=== PATIENT | male | born 1980 ===

== ENCOUNTER 2023-06-12 12:27 | Inpatient (IN) | payer MEDICAID ==
[~2023-06-12] VITALS: Ht 177.8 cm; Wt 74.2 kg
[2023-06-12 13:17] LABS: COVID AG,FIA SOURCE NASAL SWAB
[2023-06-12 13:25] LABS: BASOPHILS % (AUTO) 0.4 % (0.0-2.0); EOSINOPHILS % (AUTO) 0.8 % (1.0-6.0); HEMATOCRIT 46.2 % (41-53); HEMOGLOBIN 15.8 g/dL (13.5-17.5); LYMPHOCYTES # (AUTO) 0.8 K/uL (1.0-4.8); LYMPHOCYTES % (AUTO) 7.8 % (22.0-44.0); MEAN CORPUSCULAR HEMOGLOBIN 31.9 pg (26.0-34.0); MEAN CORPUSCULAR HGB CONC 34.3 G/dL (31.0-37.0); MEAN CORPUSCULAR VOLUME 93 fL (80-100); MONOCYTES # (AUTO) 0.4 K/uL (0.1-1.0); MONOCYTES % (AUTO) 3.5 % (2.0-9.0); NEUTROPHILS # (AUTO) 9.3 K/uL (1.8-7.7); PLATELET COUNT (AUTO) 258 K/uL (150-450); RED BLOOD CELL COUNT(AUTO) 4.97 MIL/uL (4.50-5.90); RED CELL DISTRIBUTION WIDTH 13.8 % (11.5-14.5); WHITE BLOOD COUNT (AUTO) 10.6 K/uL (4.5-11.0)
[2023-06-12 13:29] LABS: NEUTROPHILS % (AUTO) 87.5 % (40.0-70.0)
[2023-06-12] MEDS: ONDANSETRON HCL 4 MG/2 ML VIAL IVP ONE ×2 (13:30→17:20)
[2023-06-12] MEDS: MORPHINE SULFATE 2 MG/ML SYRINGE IVP ONE (13:30)
[2023-06-12 13:31] LABS: ANION GAP 12 mmol/L (8-16); CARBON DIOXIDE 27 mmol/L (22-29); CHLORIDE 104 mmol/L (98-107); GLOMERULAR FILTR. RATE CALC > 60 mL/min (>60); GLUCOSE,RANDOM 139 mg/dL (70-110); POTASSIUM 4.1 mmol/L (3.5-5.1); SODIUM SERUM 143 mmol/L (136-145); UREA NITROGEN, BLOOD 19 mg/dL (7-18)
[2023-06-12] MEDS: SODIUM CHLORIDE 0.9% 1,000 ML IV ONE ×2 (13:31→14:43)
[2023-06-12 13:36] LABS: ALANINE AMINOTRANSFERASE 24 U/L (12-78); ALBUMIN 4.1 g/dL (3.4-5.0); ALKALINE PHOSPHATASE 79 U/L (46-116); ASPARTATE AMINOTRANSFERASE 20 U/L (15-37); BILIRUBIN,TOTAL 0.7 mg/dL (0.1-1.0); LIPASE 42 U/L (16-77)
[2023-06-12 13:46] LABS: SARS-COV2 (COVID) ANTIGEN,FIA Negative (Negative); TROPONIN I-HIGH SENSITIVITY 4 ng/L (<76)
[2023-06-12 13:47] LABS: INFLUENZA TYPE A NEGATIVE FOR TYPE A (NEGATIVE); INFLUENZA TYPE B NEGATIVE FOR TYPE B (NEGATIVE)
[2023-06-12] MEDS: POTASSIUM PHOS,M-BASIC-D-BASIC 20 MEQ in DEXTROSE 5%-WATER 100 ML IV ONE (14:43)
[2023-06-12] MEDS: MORPHINE SULFATE 4 MG/ML SYRINGE IVP ONE (14:53)
[2023-06-12] MEDS ORDERED: POTASSIUM CHLORIDE 20 MEQ ER TABLET PO PRN (15:15)
[2023-06-12] MEDS ORDERED: ACETAMINOPHEN 325 MG TABLET PO PRN (15:15)
[2023-06-12] MEDS ORDERED: MORPHINE SULFATE 2 MG/ML SYRINGE IVP PRN (15:15)
[2023-06-12] MEDS ORDERED: ZOLPIDEM TARTRATE 5 MG TABLET PO PRN (15:15)
[2023-06-12] MEDS ORDERED: BISACODYL 10 MG RECTAL RECTAL SUPPOSITORY PR PRN (15:15)
[2023-06-12] MEDS ORDERED: HYDROCODONE/ACETAMINOPHEN 5-325 MG TABLET PO PRN (15:15)
[2023-06-12] MEDS ORDERED: MAGNESIUM HYDROXIDE SUSPENSION 30 ML UDCUP PO PRN (15:15)
[2023-06-12] MEDS ORDERED: ONDANSETRON HCL 4 MG/2 ML VIAL IVP PRN (15:15)
[2023-06-12] MEDS ORDERED: HydrALAZINE HCL 20 MG/ML VIAL IVP PRN (15:15)
[2023-06-12] MEDS ORDERED: POTASSIUM CHL 10 MEQ/WATER 50 ML IV PRN (15:15)
[2023-06-12] MEDS: LABETALOL HCL 5 MG/ML 20 ML VIAL IVP ONE (15:18)
[2023-06-12] MEDS: AmLODIPine BESYLATE 5 MG TABLET PO ONE ×2 (15:22)
[2023-06-12] MEDS: SODIUM,POTASSIUM PHOSPHATES POWDER PACKET PO ONE (15:23)
[2023-06-12] MEDS: HEPARIN SODIUM,PORCINE 5,000 UNITS/ML VIAL SQ SCH (15:27)
[2023-06-12] MEDS: HydrALAZINE HCL 20 MG/ML VIAL IVP ONE (17:20)
[2023-06-12] MEDS: DOCUSATE SODIUM 100 MG CAPSULE PO SCH (20:04)
[2023-06-12 21:40] VITALS: BP 116/70; PULSE 107; RESP 18; TEMP 98.5
[2023-06-13 00:15] VITALS: BP 113/59; PULSE 102; RESP 18; TEMP 98
[2023-06-13 05:37] VITALS: BP 118/62; PULSE 100; RESP 18; TEMP 98.2
[2023-06-13 05:41] VITALS: BP 115/64; PULSE 78; RESP 18; TEMP 98.1
[2023-06-13 07:53] LABS: ALBUMIN 3.2 g/dL (3.4-5.0); CREATININE 0.88 mg/dL (0.60-1.30); GLOMERULAR FILTR. RATE CALC > 60 mL/min (>60); POTASSIUM 3.6 mmol/L (3.5-5.1); UREA NITROGEN, BLOOD 13 mg/dL (7-18)
[2023-06-13 08:44] LABS: ALANINE AMINOTRANSFERASE 16 U/L (12-78); ALKALINE PHOSPHATASE 67 U/L (46-116); ANION GAP 15 mmol/L (8-16); ASPARTATE AMINOTRANSFERASE 17 U/L (15-37); BILIRUBIN,TOTAL 0.6 mg/dL (0.1-1.0); CARBON DIOXIDE 22 mmol/L (22-29); CHLORIDE 106 mmol/L (98-107); GLUCOSE,RANDOM 83 mg/dL (70-110); SODIUM SERUM 143 mmol/L (136-145); TOTAL PROTEIN, SERUM 6.8 g/dL (6.4-8.2)
[2023-06-13] MEDS: PANTOPRAZOLE SODIUM 40 MG DR TABLET PO SCH (09:59)
[2023-06-13] MEDS: PIPERACILLIN/TAZO 3.375 GM/D5W 50 ML IV SCH (11:33)
[2023-06-13] MEDS ORDERED: ONDA-104 PO (12:49)
[2023-06-13] MEDS ORDERED: METR500 PO (12:49)
[2023-06-13] MEDS ORDERED: LOPE-232 PO (12:49)
[2023-06-13] MEDS ORDERED: AMLO-257 PO (12:54)
[2023-06-13 13:00] VITALS: BP 133/81; PULSE 72; RESP 18; TEMP 98.2
[2023-06-13] MEDS: POTASSIUM CHLORIDE 20 MEQ ER TABLET PO ONE (13:27)
== END 2023-06-13 13:45 | disposition home or self-care (01) | DRG 249 ==
LOC: EMS 12:28 → AHU 17:30 → 5S 20:21
PROVIDERS: ADMIT Internal Medicine; ATTEND Internal Medicine
DX: A08.4 Viral intestinal infection, unspecified (principal); E83.39 Other disorders of phosphorus metabolism; E86.0 Dehydration; I10 Essential (primary) hypertension; Z20.822 Contact with and (suspected) exposure to COVID-19; Z79.899 Other long term (current) drug therapy
CPT/HCPCS: 74176; 80053; 83690; 83735; 84100; 84484; 85025; 87804; 93005; 99285; G0378; J0360; J1644; J2270; J2405; J2543; J3490; J7060

== ENCOUNTER → 2024-02-04 | Emergency (ER) | payer MEDICAID ==
[~2024-02-04] VITALS: Ht 180.3 cm; Wt 75.0 kg
[~2024-02-04] MED LIST: AMLO-257 PO; AMOX500C2 PO; LOPE-232 PO; METR500 PO; ONDA-104 PO
[2024-02-04 10:36] VITALS: TEMP 99
[2024-02-04 11:30] LABS: COVID AG,FIA SOURCE NASAL SWAB
[2024-02-04 12:21] LABS: SARS-COV2 (COVID) ANTIGEN,FIA Negative (Negative)
[2024-02-04 12:22] LABS: INFLUENZA TYPE A NEGATIVE FOR TYPE A (NEGATIVE); INFLUENZA TYPE B NEGATIVE FOR TYPE B (NEGATIVE)
[2024-02-04 13:22] VITALS: BP 130/77; PULSE 80; RESP 18; O2SAT 99
== END | disposition still patient (30) ==
LOC: EMS 10:26
DX: H66.90 Otitis media, unspecified, unspecified ear (principal); F17.210 Nicotine dependence, cigarettes, uncomplicated; F12.90 Cannabis use, unspecified, uncomplicated; Z20.822 Contact with and (suspected) exposure to COVID-19
CPT/HCPCS: 87804; 99283